=== PATIENT | female | born 1980 | race Caucasian/White ===

== ENCOUNTER 2017-11-25 06:17 | Inpatient (IN) ==
[2017-11-25] MEDS ORDERED: Sodium Chlor 0.9% Inj 500 ML IV.SIG PRN (07:43)
[2017-11-25] MEDS ORDERED: Naloxone Inj 0.4 MG/ML Vial IV.PUSH PRN (07:43)
[2017-11-25] MEDS ORDERED: Oxytocin 30 Units/500ml Premix 30 UNITS/500 ML BAG IV.SIG PRN (07:43)
[2017-11-25] MEDS ORDERED: fentaNYL Citrate Inj 100 MCG/2 ML Ampul IV.PUSH PRN ×2 (07:43)
[2017-11-25] MEDS ORDERED: Sod Chloride 0.9% Inj 1,000 ML IV.CONT PRN (07:43)
[2017-11-25] MEDS ORDERED: Oxytocin 30 Units/500ml Premix 30 UNITS/500 ML BAG IV.SIG ONE (07:43)
[2017-11-25] MEDS ORDERED: Citric Acid/Sodium Citrate Liq 30 ML UDC PO SCH (07:45)
--- NOTE | 2017-11-25 08:04 | P.HPOB ---
History of Present Illness Service: ob Primary Care Physician: Gina Schmitt MD Chief Complaint: iol History of Present Illness: 37 yo with iup at 39 wk being admitted for iol as she is term an dhas favorable ellison score. She reports good fm, irreg contractions, no vb or lof. PNC has been c/b --hsv- she hasd an outbreak at 35 weeks. Has been on supression since that time. No lesion son last exam --AMA - neg cfDNA, did not do msAFP, normal anatomy u/s --Husbsnd traveled to [place]- neg zika testing --PTD at 36 wk - declined 17 [place] -P Weeks Gestation:: 39 Para: 2 : 4 Total # of Miscarriage(s): 1 - Inpatient Certification I certify that the inpatient services were ordered in accordance with Medicare regulations governing the order. This includes certification that hospital inpatient services are reasonable and necessary and in the case of services not specified as inpatient-only under 42 CFR 419.22(n), that they are appropriately provided as inpatient services in accordance to with the 2-midnight benchmark under 43 CFR 412.3(e) Estimated Total Length of Stay (Days): 3 Plans for Post Hospital Care: Home Review of Systems All other systems reviewed negative except as stated in HPI PMFSH - Medical / Surgical Hx Neg / Unobtainable Medical Problems Denied: Yes - Tobacco History Second Hand Smoke Exposure: No Tobacco Use In Past 30 Days: No Medications and Allergies Active Medications: Active Medications Citric Acid/Sodium Citrate (Sodium Citrate/Citric Acid Liq) 30 ml PO [facility] Stop: 11/29/17 07:44 Fentanyl Citrate (Fentanyl Inj) 50 mcg IV.PUSH Q1H PRN PRN Reason: Pain Scale 3 - 5 Fentanyl Citrate (Fentanyl Inj) 100 mcg IV.PUSH Q1H PRN PRN Reason: PAIN SCALE 6 TO 10 Lactated Ringer's (Lr 1000 Ml Inj) 1,000 mls @ 125 mls/hr IV.CONT .Q8H CLARISA Sodium Chloride (Ns Inj) 500 mls @ 1,000 mls/hr IV.SIG UNSCH PRN PRN Reason: SEE LABEL COMMENTS Sodium Chloride (Ns Inj) 1,000 mls @ 100 mls/hr IV.CONT .Q10H PRN PRN Reason: SEE LABEL COMMENTS Oxytocin (Pitocin 30 Units/Ns 500 Ml Premix) 30 units in 500 mls @ 999 mls/hr IV.SIG BOLUS ONE Stop: 11/25/17 08:13 Oxytocin (Pitocin 30 Units/Ns 500 Ml Premix) 30 units in 500 mls @ 2 mls/hr IV.SIG TITRATE PRN; Protocol PRN Reason: For induction of labor Lactated Ringer's (Lr 1000 Ml Inj) 1,000 mls @ 3,000 mls/hr IV.SIG UNSCH PRN PRN Reason: compromise or epidural Lidocaine HCl (Xylocaine 1% Inj) 0.1 ml I-DERMAL PRN PRN PRN Reason: For IV start Stop: 11/28/17 07:42 Lidocaine HCl (Xylocaine 1% Inj) 10 ml INFILTRATN PRN PRN PRN Reason: For episiotomy repair Stop: 11/27/17 07:42 Mineral Oil (Muri-Lube Oil) 10 ml TOPICAL PRN PRN PRN Reason: PRN perineal massage Naloxone HCl (Narcan Inj) 0.1 mg IV.PUSH Q2M PRN PRN Reason: for opiate reversal Allergies Allergy/AdvReac Type Severity Reaction Status Date / Time No Known Allergies Allergy Verified 11/25/17 07:55 Home Medications Medication Instructions Recorded Confirmed Type PNV cmb#95-ferrous fumarate-FA 1 tab PO DAILY 11/25/17 11/25/17 History [] valacyclovir [Valtrex] 1,000 mg PO DAILY 11/25/17 11/25/17 History Exam Vital signs: Vital Signs 11/25/17 07:00 11/25/17 07:01 Temperature 98.1 F Pulse Rate 87 Respiratory Rate 18 Blood Pressure 122/78 - Constitutional no acute distress - Routine HEENT Exam Head: Present: normocephalic Eye: Present: EOMI - Routine Neck Exam Present: full ROM - Routine Respiratory Exam Present: accessory muscle use - Routine Abdominal Exam Present: soft - Routine Exam Comments: 2/50/-2 soft anterior cervix - Routine Extremities Exam Present: pulses intact. Absent: clubbing, edema Results - Labs CBC & Chem 7: 11/25/17 07:13 Caprini VTE Risk Assessment Caprini VTE Risk Assessment: No/Low Risk (score <= 1) Caprini Risk Assessment Model: Point Value = 1 Point Value = 2 Point Value = 3 Point Value = 5 Age 41-60 Minor surgery BMI > 25 kg/m2 Swollen legs Varicose veins or History of unexplained or recurrent spontaneous Oral contraceptives or hormone replacement Sepsis (< 1 month) Serious lung disease, including pneumonia (< 1 month) Abnormal pulmonary function Acute myocardial infarction Congestive heart failure (< 1 month) History of inflammatory bowel disease Medical patient at bed rest Age 61-74 Arthroscopic surgery Major open surgery (> 45 min) Laparoscopic surgery (> 45 min) Malignancy Confined to bed (> 72 hours) Immobilizing plaster cast Central venous access Age >= 75 History of VTE Family history of VTE Factor V Leiden Prothrombin [id number] Lupus anticoagulant Anticardiolipin antibodies Elevated serum homocysteine Heparin-induced thrombocytopenia Other congenital or acquired thrombophilia Stroke (< 1 month) Elective arthroplasty Hip, pelvis, or leg fracture Acute spinal cord injury (< 1 month) Prophylaxis Regimen: Total Risk Factor Score Risk Level Prophylaxis Regimen 0-1 Low Early ambulation 2 Moderate Order ONE of the following: *Sequential Compression Device (SCD) *Heparin 5000 units SQ BID 3-4 Higher Order ONE of the following medications: *Heparin 5000 units SQ TID *Enoxaparin/Lovenox 40 mg SQ daily (WT < 150 kg, CrCl > 30 mL/min) *Enoxaparin/Lovenox 30 mg SQ daily (WT < 150 kg, CrCl > 10-29 mL/min) *Enoxaparin/Lovenox 30 mg SQ BID (WT < 150 kg, CrCl > 30 mL/min) AND/OR *Sequential Compression Device (SCD) 5 or more Highest Order ONE of the following medications: *Heparin 5000 units SQ TID (Preferred with Epidurals) *Enoxaparin/Lovenox 40 mg SQ daily (WT < 150 kg, CrCl > 30 mL/min) *Enoxaparin/Lovenox 30 mg SQ daily (WT < 150 kg, CrCl > 10-29 mL/min) *Enoxaparin/Lovenox 30 mg SQ BID (WT < 150 kg, CrCl > 30 mL/min) AND *Sequential Compression Device (SCD) Assessment and Plan - Diagnosis (1) AMA (advanced maternal age) multigravida 35+ Code(s): O09.529 - Supervision of elderly multigravida, unspecified trimester Status: Acute (2) HSV (herpes simplex virus) anogenital infection Code(s): A60.9 - Anogenital herpesviral infection, unspecified Status: Acute (3) Labor and delivery indication for care or intervention Code(s): O75.9 - Complication of labor and delivery, unspecified Status: Acute - Plan 37 yo with iup at 39 wk being admitted for iol as she is term and has favorable ellison score. --IOL - kay strat pitocin and AROM. REviewed risks of prolonged iol, arrest o fdilation/descent and possible need for CD. --hsv- she had an outbreak at 35 weeks. Has been on supression since that time. No lesions on last exam --AMA - neg cfDNA, did not do msAFP, normal anatomy u/s -- traveled to [place]- neg zika testing --h/o PTD at 36 wk - declined 17 [place] -P --GBS negative -- Fetus- Male - EFW 8-8.5 lb, Cat I tracing Discharge Planning: home ppd2-3
[2017-11-25 08:08] LABS: Baso # (Auto) 0.1 th/mm3 (0.0-0.2); Baso % (Auto) 0.4 % (0.0-2.0); Eos # (Auto) 0.1 th/mm3 (0.0-0.4); Eos % (Auto) 0.7 % (0.0-4.0); Hematocrit 36.4 % (35.0-46.0); Hemoglobin 12.4 gm/dL (11.6-15.3); Lymph # (Auto) 1.8 th/mm3 (1.0-4.8); Lymph % (Auto) 15.2 % (9.0-44.0); Mean Corpuscular Hemoglobin 30.8 pg (27.0-34.0); Mean Corpuscular Volume 90.5 fL (80.0-100.0); Mean Platelet Volume 9.8 fL (7.0-11.0); Mono # (Auto) 0.8 th/mm3 (0.0-0.9); Mono % (Auto) 6.6 % (0.0-8.0); Neut # (Auto) 9.1 th/mm3 (1.8-7.7); Neut % (Auto) 77.1 % (16.0-70.0); Platelet Count 217 th/mm3 (150-450); Red Blood Count 4.02 mil/mm3 (4.00-5.30); Red Cell Distribution Width 13.4 % (11.6-17.2); White Blood Count 11.8 th/mm3 (4.0-11.0)
[2017-11-25 08:43] LABS: Bacteria,Urine Rare /hpf; Bilirubin,Urine Negative (Negative); Clarity,Urine Hazy (Clear); Color,Urine Yellow (Yellw/Straw); Glucose,Urine (UA) Negative (Negative); Leukocyte Esterase,Urine Negative (Negative); Nitrite,Urine Negative (Negative); Specific Gravity,Urine 1.003 (1.002-1.035); Squamous Epithelial Cell,Urine 1 /hpf (0-5)
[2017-11-25 09:05] LABS: Amphetamine Urine With Conf Neg (Neg); Benzodiazepine Urine With Conf Neg (Neg)
[2017-11-25] MEDS ORDERED: Lidocaaine 1.5%/Epinephrine 1:200,000 PF Inj 5 ML Amp ONE (13:05)
[2017-11-25] MEDS ORDERED: Lidocaine PF 1% Inj 5 ML Vial ONE (13:05)
[2017-11-25] MEDS ORDERED: fentaNYL 2MCG-Bupiv 0.125% Epi 150 ML EPIDURAL ONE (13:10)
[2017-11-25] MEDS ORDERED: fentaNYL Citrate Inj 100 MCG/2 ML Ampul EPIDURAL ONE (14:17)
[2017-11-25] MEDS ORDERED: fentaNYL 2MCG-Bupiv 0.125% Epi 150 ML EPIDURAL PRN (14:30)
--- NOTE | 2017-11-25 18:00 | P.OBLABOR ---
Subjective Interval history: Pt has epidural, feels comfortable Objective Vital Signs: Vital Signs - 8 hr 11/25/17 10:41 11/25/17 11:57 11/25/17 13:40 Temperature Pulse Rate 78 74 87 Blood Pressure 117/73 121/72 132/79 11/25/17 14:10 11/25/17 14:52 11/25/17 14:55 Temperature 98.5 F Pulse Rate 88 86 86 Blood Pressure 123/72 104/62 11/25/17 15:10 11/25/17 16:16 11/25/17 16:31 Temperature Pulse Rate 88 71 84 Blood Pressure 105/51 L 118/52 L 116/67 11/25/17 17:00 11/25/17 17:30 Temperature Pulse Rate 85 84 Blood Pressure 119/65 111/66 Objective: Pelvic Exam: Cervix:3-4/70/-1, anterior, medium consistency Presentation: ceph Membranes: ruptured] Uterine Contractions: Adequate mvu FHT's: Category: I Baseline: 140 Reactive: y Variability: mond Decels: [-] Weeks Gestation: 39 Patient Started Active Labor: No Medical Induction of Labor: Yes Artificial Rupture of Membrane: Yes Artificial ROM Date: 11/25/17 Artificial ROM Time: 12:20 Assessment and Plan - Diagnosis (1) AMA (advanced maternal age) multigravida 35+ Code(s): O09.529 - Supervision of elderly multigravida, unspecified trimester Status: Acute (2) HSV (herpes simplex virus) anogenital infection Code(s): A60.9 - Anogenital herpesviral infection, unspecified Status: Acute (3) Labor and delivery indication for care or intervention Code(s): O75.9 - Complication of labor and delivery, unspecified Status: Acute - Plan 37 yo with iup at 39 wk admitted for iol as she is term and has favorable ellison score. --IOL -s/p arom, on pitocin. Had high mvu add pitocin decreased. Will stop pitocin for 20 min and allow pt to eat . Reviewed risks of prolonged iol, arrest of dilation/descent and possible need for CD. --hsv- she had an outbreak at 35 weeks. Has been on supression since that time. No lesions present --AMA - neg cfDNA, did not do msAFP, normal anatomy u/s -- traveled to [place]- neg zika testing --h/o PTD at 36 wk - declined 17 [place] -P --GBS negative -- Fetus- Male - EFW 8-8.5 lb, Cat I tracing Discharge Planning: home ppd2-3
[2017-11-26] MEDS ORDERED: Lidocaine 1% Inj 50 ML Vial ONE (00:57)
[2017-11-26] MEDS ORDERED: Oxytocin 30 Units/500ml Premix 30 UNITS/500 ML BAG IV.CONT PRN (01:33)
[2017-11-26] MEDS ORDERED: Benzocaine 20% Top Spray 60 ML Can TOPICAL PRN (01:33)
[2017-11-26] MEDS ORDERED: Zolpidem Tartrate 5 MG Tablet PO PRN (01:33)
[2017-11-26] MEDS ORDERED: Acetaminophen 325 MG Tablet PO PRN (01:33)
[2017-11-26] MEDS ORDERED: Witch Hazel 50%/Glyderin 12.5% 40 Pad Jar RECTAL PRN (01:33)
[2017-11-26] MEDS ORDERED: Naloxone Inj 0.4 MG/ML Vial IV.PUSH PRN (01:33)
[2017-11-26] MEDS ORDERED: Bisacodyl 10 MG Supp RECTAL PRN (01:33)
--- NOTE | 2017-11-26 01:33 | P.OBDELI ---
Weeks Gestation: 39 Patient Started Active Labor: Yes Medical Induction of Labor: Yes Artificial Rupture of Membrane: Yes Anesthesia: Epidural Episiotomy: none Vaginal Delivery: Normal Presentation: Occiput anterior Nuchal Cord: None Delayed Cord Clamping (45 sec): Yes Placenta: Spontaneous delivery, Intact, 3 vessel cord Laceration: None Infant: Male
--- NOTE | 2017-11-26 08:15 | P.PNOB ---
Subjective Post day: 0 Objective Vital Signs/I&O: Vital Signs 11/25/17 08:41 11/25/17 08:45 11/25/17 09:14 Temperature Pulse Rate 84 81 Respiratory Rate 20 20 Blood Pressure 119/74 120/77 11/25/17 09:51 11/25/17 10:41 11/25/17 11:57 Temperature Pulse Rate 78 78 74 Respiratory Rate Blood Pressure 115/70 117/73 121/72 11/25/17 13:40 11/25/17 14:10 11/25/17 14:52 Temperature 98.5 F Pulse Rate 87 88 86 Respiratory Rate Blood Pressure 132/79 123/72 104/62 11/25/17 14:55 11/25/17 15:10 11/25/17 16:16 Temperature Pulse Rate 86 88 71 Respiratory Rate Blood Pressure 105/51 L 118/52 L 11/25/17 16:31 11/25/17 17:00 11/25/17 17:30 Temperature 98.3 F Pulse Rate 84 85 84 Respiratory Rate 18 Blood Pressure 116/67 119/65 111/66 11/25/17 18:15 11/25/17 18:30 11/25/17 18:45 Temperature Pulse Rate 87 93 H 85 Respiratory Rate Blood Pressure 122/67 124/78 126/71 11/25/17 19:00 11/25/17 19:31 11/25/17 19:45 Temperature Pulse Rate 92 H 89 82 Respiratory Rate Blood Pressure 127/69 120/72 118/71 11/25/17 20:00 11/25/17 20:30 11/25/17 20:46 Temperature 98.2 F Pulse Rate 82 77 Respiratory Rate 15 Blood Pressure 119/73 112/68 11/25/17 21:00 11/25/17 21:45 11/25/17 22:00 Temperature 98.0 F Pulse Rate 78 88 74 Respiratory Rate 17 Blood Pressure 119/71 118/70 119/70 11/25/17 22:45 11/25/17 23:01 11/25/17 23:31 Temperature Pulse Rate 80 88 Respiratory Rate Blood Pressure 109/73 127/106 H 101/53 L 11/26/17 00:00 11/26/17 00:16 11/26/17 00:45 Temperature Pulse Rate 90 83 92 H Respiratory Rate 18 Blood Pressure 103/48 L 102/49 L 121/75 08/28/18 01:01 11/26/17 01:45 11/26/17 01:51 Temperature 98.2 F Pulse Rate 105 H 103 H Respiratory Rate 18 18 Blood Pressure 92/53 L 100/65 11/26/17 02:02 11/26/17 02:16 11/26/17 02:30 Temperature Pulse Rate 87 86 85 Respiratory Rate 17 Blood Pressure 98/48 L 100/47 L 102/68 11/26/17 02:45 11/26/17 03:16 11/26/17 03:41 Temperature Pulse Rate 83 76 Respiratory Rate 18 17 Blood Pressure 114/60 110/71 11/26/17 04:15 Temperature 98.1 F Pulse Rate 70 Respiratory Rate 16 Blood Pressure 118/74 Intake & Output 11/25/17 11/26/17 11/26/17 18:59 06:59 18:59 Intake Total 1000 / 1000 Balance 1000 / 1000 Weight 75 kg Intake: IV 1000 / 1000 LR 1000 mL Inj 1,000 ML @ 125 1000 / 1000 mls/hr IV.CONT .Q8H [facility] Rx#: [id number] Other: Weight On Admission 75 kg Result Diagrams: 11/25/17 07:13 Objective Remarks: GENERAL: Well-nourished, well-developed patient. CARDIOVASCULAR: Regular rate and rhythm without murmurs, gallops, or rubs. RESPIRATORY: Breath sounds equal bilaterally. No accessory muscle use. ABDOMEN/GI: Abdomen soft, non-tender. Fundus: Firm, non-tender at umbilicus. GENITOURINARY: Light to moderate bleeding. EXTREMITIES: No cyanosis or edema, non-tender, without signs of DVT. Medications and IVs: Active Medications Acetaminophen (Tylenol) 650 mg PO Q4H PRN PRN Reason: PAIN SCALE 1 TO 2 Al Hydroxide/Mg Hydroxide (Milk Of Magnesia Liq) 30 ml PO Q12H PRN PRN Reason: Mild Constipation Benzocaine (Americaine 20% Top [place]) 1 spray TOPICAL Q4H PRN PRN Reason: For Perineum Discomfort Bisacodyl (Dulcolax Supp) 10 mg RECTAL DAILY PRN PRN Reason: SEVERE CONSITIPATION Diphtheria/Pertussis/Tetanus Vacc (Boostrix Vaccine Inj) 0.5 ml IM .ONCE ONE Stop: 11/26/17 16:01 Oxytocin (Pitocin 30 Units/Ns 500 Ml Premix) 30 units in 500 mls @ 100 mls/hr IV.CONT UNSCH PRN PRN Reason: Heavy bleeding Ibuprofen (Motrin) 800 mg PO Q8H PRN PRN Reason: For Cramping Last Admin: 11/26/17 03:43 Dose: 800 mg Lactulose (Lactulose Liq) 30 ml PO DAILY PRN PRN Reason: SEVERE CONSITIPATION Measles/Mumps/Rubella Vaccine Live (M-M-R Ii Vaccine Inj) 0.5 ml SQ .ONCE ONE Stop: 11/26/17 16:01 Naloxone HCl (Narcan Inj) 0.1 mg IV.PUSH Q2M PRN PRN Reason: for opiate reversal Ondansetron HCl (Zofran Odt) 4 mg PO Q6H PRN PRN Reason: NAUSEA OR VOMITING Oxycodone/Acetaminophen (Percocet 5/325 Mg) 1 tab PO Q4H PRN PRN Reason: PAIN SCALE 3 TO 5 Oxycodone/Acetaminophen (Percocet 5/325 Mg) 2 tab PO Q4H PRN PRN Reason: PAIN SCALE 6 TO 10 Vit/Calcium/Iron/Folic Ac (Stuartnatal Plus 3) 1 tab PO DAILY CLARISA Rho Immune Globulin (Winrho Inj) 1,500 unit IM ONCE ONE Stop: 11/26/17 16:01 Senna/Docusate Sodium (Janeth-Colace) 1 tab PO BID [facility] Sennosides (Senokot) 17.2 mg PO Q12H PRN PRN Reason: Moderate Constipation Sodium Chloride (Ns Flush) 2 ml IV.FLUSH BID CLARISA Sodium Chloride (Ns Flush) 2 ml IV.FLUSH PRN PRN PRN Reason: FLUSH AFTER USING IV ACCESS Varicella Virus Vaccine Live (Varivax Vaccine Inj) 0.5 ml SQ .ONCE ONE Stop: 11/26/17 16:01 Witch Tamar/Glycerin (Tucks Pads) 1 applicatio RECTAL QID PRN PRN Reason: HEMORRHOIDS Zolpidem Tartrate (Ambien) 5 mg PO HS PRN PRN Reason: SLEEP Assessment and Plan - Diagnosis (1) AMA (advanced maternal age) multigravida 35+ Code(s): O09.529 - Supervision of elderly multigravida, unspecified trimester Status: Acute (2) HSV (herpes simplex virus) anogenital infection Code(s): A60.9 - Anogenital herpesviral infection, unspecified Status: Acute (3) Labor and delivery indication for care or intervention Code(s): O75.9 - Complication of labor and delivery, unspecified Status: Acute - Plan 37 yo with iup at 39 wk admitted for iol as she is term and has favorable ellison score. --IOL -s/p arom, on pitocin. Had high mvu add pitocin decreased. Will stop pitocin for 20 min and allow pt to eat . Reviewed risks of prolonged iol, arrest of dilation/descent and possible need for CD. --hsv- she had an outbreak at 35 weeks. Has been on supression since that time. No lesions present --AMA - neg cfDNA, did not do msAFP, normal anatomy u/s -- traveled to [place]- neg zika testing --h/o PTD at 36 wk - declined 17 [place] -P --GBS negative -- Fetus- Male - EFW 8-8.5 lb, Cat I tracing 11/26/17 Doing well post 7 hours she is nursing well no concerns counseled on circ Discharge Planning: home ppd2-3
[2017-11-26] MEDS: Senna/Docusate Sodium 8.6/50 MG Tablet PO SCH ×2 (09:51→20:12)
[2017-11-26] MEDS: Prenatal Vit/Ca/Iron/Folic Acid Tablet PO SCH (09:51)
[2017-11-26] MEDS ORDERED: Diphtheria/Tetanus/Pertussis Vaccine Inj 0.5 ML Syringe IM ONE (16:00)
[2017-11-26] MEDS ORDERED: Measles/Mumps/Rubella Vaccine Inj 0.5 ML Vial SQ ONE (16:00)
[2017-11-26] MEDS ORDERED: Rho Immune Globulin Inj 1,500 UNIT/1.3 ML Vial IM ONE (16:00)
[2017-11-26] MEDS ORDERED: Varicella Vaccine Live 1350 UNITS/0.5 ML Vial SQ ONE (16:00)
[2017-11-27] MEDS: Prenatal Vit/Ca/Iron/Folic Acid Tablet PO SCH (10:02)
[2017-11-27] MEDS: Senna/Docusate Sodium 8.6/50 MG Tablet PO SCH (10:03)
--- NOTE | 2017-11-27 11:57 | P.DS ---
Date of admission: 11/25/17 06:17 Primary care physician: Gina Schmitt MD Brief History from admission: 37-year-old was induction at 39 weeks for favorable cervix, vaginal delivery without complications. She was discharged on day #1. DS: Summary Hospital Course: see brief history - Time Spent with Patient Total time spent providing and/or coordinating discharge services: Less than 30 minutes Exam Vital signs: Vital Signs 11/26/17 20:00 11/27/17 08:00 Temperature 98.3 F 98.0 F Pulse Rate 72 78 Respiratory Rate 18 18 Blood Pressure 122/81 112/66 Results Procedures completed during hospitalization: Discharge Plan - Discharge Disposition Patient Disposition: Discharge Home - Discharge Condition Condition: Good - Discharge Order Discharge Orders: Discharge Order (Routine); Ordered 11/27/17 Ordered By: Kurt Erickson - Discharge Details Anticipated Discharge Date: 11/27/17 - Physicians Team Primary Care Provider: Gina Schmitt Attending Provider: Gina Schmitt - Rxs /Orders / Referrals /Forms Prescriptions: Continue PNV cmb#95-ferrous fumarate-FA [] 28 mg iron- 800 mcg Tablet 1 tab PO DAILY Discontinued valacyclovir [Valtrex] 500 mg Tablet 1,000 mg PO DAILY Referrals: Gina Schmitt MD [Primary Care Provider] - See Instructions - Discharge Instructions Patient Printed Instructions: Preeclampsia and Eclampsia After Delivery (GEN), Vaginal Delivery (DC) - Post Discharge Care Plan Care Plan Goals: Congratulations on your new baby! We want your recovery to be montero and trouble free. Please Report the Following Symptoms to Your Doctor: -Temperature above 100.5 degrees -Unusual pain or calf pain -Increased vaginal bleeding -Painful or difficulty urinating -Feelings of extreme sadness or anxiety Goals to Promote Your Health * To prevent worsening of your condition and complications * To maintain your health at the optimal level Directions to Meet Your Goals Take your medications as prescribed Follow your dietary instruction Follow activity as directed Ensure plenty of rest for recovery Drink fluids for hydration Keep your appointments as scheduled Take your immunizations and boosters as scheduled If your symptoms worsen call your OB Physician, or go to an Urgent Care Center or Emergency Room Smoking is Dangerous to your health. Avoid second hand smoke Call the 24-hour crisis hotline for domestic abuse at
--- NOTE | 2017-11-27 13:31 | P.PNOB ---
Subjective Post day: 2 Interval history: PPD#2; Doing well, asked for :Gerardo nipple cream" for home, stable for discharge Objective Vital Signs/I&O: Vital Signs 11/26/17 20:00 11/27/17 08:00 Temperature 98.3 F 98.0 F Pulse Rate 72 78 Respiratory Rate 18 18 Blood Pressure 122/81 112/66 Result Diagrams: 11/25/17 07:13 Objective Remarks: GENERAL: Well-nourished, well-developed patient. CARDIOVASCULAR: Regular rate and rhythm without murmurs, gallops, or rubs. RESPIRATORY: Breath sounds equal bilaterally. No accessory muscle use. ABDOMEN/GI: Abdomen soft, non-tender. Fundus: Firm, non-tender at umbilicus. GENITOURINARY: Light to moderate bleeding. EXTREMITIES: No cyanosis or edema, non-tender, without signs of DVT. Medications and IVs: Active Medications Acetaminophen (Tylenol) 650 mg PO Q4H PRN PRN Reason: PAIN SCALE 1 TO 2 Al Hydroxide/Mg Hydroxide (Milk Of Magnesia Liq) 30 ml PO Q12H PRN PRN Reason: Mild Constipation Benzocaine (Americaine 20% Top [place]) 1 spray TOPICAL Q4H PRN PRN Reason: For Perineum Discomfort Bisacodyl (Dulcolax Supp) 10 mg RECTAL DAILY PRN PRN Reason: SEVERE CONSITIPATION Oxytocin (Pitocin 30 Units/Ns 500 Ml Premix) 30 units in 500 mls @ 100 mls/hr IV.CONT UNSCH PRN PRN Reason: Heavy bleeding Ibuprofen (Motrin) 800 mg PO Q8H PRN PRN Reason: For Cramping Last Admin: 11/27/17 05:53 Dose: 800 mg Lactulose (Lactulose Liq) 30 ml PO DAILY PRN PRN Reason: SEVERE CONSITIPATION Naloxone HCl (Narcan Inj) 0.1 mg IV.PUSH Q2M PRN PRN Reason: for opiate reversal Ondansetron HCl (Zofran Odt) 4 mg PO Q6H PRN PRN Reason: NAUSEA OR VOMITING Oxycodone/Acetaminophen (Percocet 5/325 Mg) 1 tab PO Q4H PRN PRN Reason: PAIN SCALE 3 TO 5 Last Admin: 11/27/17 05:53 Dose: 1 tab Oxycodone/Acetaminophen (Percocet 5/325 Mg) 2 tab PO Q4H PRN PRN Reason: PAIN SCALE 6 TO 10 Vit/Calcium/Iron/Folic Ac (Stuartnatal Plus 3) 1 tab PO DAILY [facility] Last Admin: 11/27/17 10:02 Dose: 1 tab Senna/Docusate Sodium (Janeth-Colace) 1 tab PO BID [facility] Last Admin: 11/27/17 10:03 Dose: 1 tab Sennosides (Senokot) 17.2 mg PO Q12H PRN PRN Reason: Moderate Constipation Sodium Chloride (Ns Flush) 2 ml IV.FLUSH BID [facility] Last Admin: 11/27/17 10:46 Dose: Not Given Sodium Chloride (Ns Flush) 2 ml IV.FLUSH PRN PRN PRN Reason: FLUSH AFTER USING IV ACCESS Witch Tamar/Glycerin (Tucks Pads) 1 applicatio RECTAL QID PRN PRN Reason: HEMORRHOIDS Zolpidem Tartrate (Ambien) 5 mg PO HS PRN PRN Reason: SLEEP Assessment and Plan - Diagnosis (1) AMA (advanced maternal age) multigravida 35+ Code(s): O09.529 - Supervision of elderly multigravida, unspecified trimester Status: Acute (2) HSV (herpes simplex virus) anogenital infection Code(s): A60.9 - Anogenital herpesviral infection, unspecified Status: Acute (3) Labor and delivery indication for care or intervention Code(s): O75.9 - Complication of labor and delivery, unspecified Status: Acute - Plan 37 yo with iup at 39 wk admitted for iol as she is term and has favorable ellison score. --IOL -s/p arom, on pitocin. Had high mvu add pitocin decreased. Will stop pitocin for 20 min and allow pt to eat . Reviewed risks of prolonged iol, arrest of dilation/descent and possible need for CD. --hsv- she had an outbreak at 35 weeks. Has been on supression since that time. No lesions present --AMA - neg cfDNA, did not do msAFP, normal anatomy u/s -- traveled to [place]- neg zika testing --h/o PTD at 36 wk - declined 17 [place] -P --GBS negative -- Fetus- Male - EFW 8-8.5 lb, Cat I tracing 11/27/2017 PPD#2; Stable for discharge, counseling, RTo in 6 weeks. Discharge Planning: Home today
--- NOTE | 2017-11-27 13:43 | P.PCNCIRC ---
Procedure Date: 11/27/17 Procedure: Circumcision Pre-procedure diagnosis: circumcision Post-procedure diagnosis: circumcision Informed Consent: The risks, benefits, indications, potential complications, and alternatives were explained to the patient/family and informed consent obtained. The baby was brought to the procedure room where a time-out was done to ID the patient and the procedure. Performing Physician: Vinay Miles MD Anesthesia used: 1 % lidocaine injected Type of block: dorsal penile block Device used: Cassia Description: The baby was prepped and draped in a sterile fashion. The procedure followed standard technique. The baby tolerated the procedure well without complication. Estimated blood loss: none Specimen: No
== END 2017-11-27 17:26 | disposition home or self-care (01) ==
LOC: H2E 06:17 → H1EA 11-26 05:02
PROVIDERS: ADMIT Obstetrics & Gynecology; ATTEND Obstetrics & Gynecology